=== PATIENT | female | born 1965 | race Caucasian/White ===

== ENCOUNTER 2020-05-29 08:25 | Emergency (ER) | payer OTHER, SELFPAY ==
[2020-05-29] MEDS ORDERED: Ibuprofen 800 MG TAB ONE (09:00)
[2020-05-29] MEDS ORDERED: Ondansetron ODT 4 MG TAB ONE (09:06)
== END 2020-05-29 09:11 | disposition home or self-care (01) ==
LOC: BURERS 08:25
DX: R11.2 Nausea with vomiting, unspecified (principal); M79.10 Myalgia, unspecified site; I10 Essential (primary) hypertension
CPT/HCPCS: 99283; Q0162